=== PATIENT | female | born 1945 ===

== ENCOUNTER 2018-02-18 10:48 | Outpatient (CLI) | payer OTHER ==
[~2018-02-18] VITALS: Ht 172.7 cm; Wt 64.9 kg
== END 2018-02-18 11:10 | disposition home or self-care (01) ==
LOC: OFIC 805 10:48
DX: K14.0 Glossitis (principal)

== ENCOUNTER 2018-03-12 10:08 | Outpatient (CLI) | payer OTHER ==
[~2018-03-12] VITALS: Ht 152.4 cm; Wt 64.9 kg
== END 2018-03-12 10:15 | disposition home or self-care (01) ==
LOC: OFIC 805 10:08
DX: K14.0 Glossitis (principal); J31.0 Chronic rhinitis; R49.0 Dysphonia; K14.8 Other diseases of tongue

== ENCOUNTER 2018-03-22 13:03 | Outpatient (CLI) | payer OTHER ==
[~2018-03-22] VITALS: Ht 152.4 cm; Wt 64.9 kg
== END 2018-03-22 13:20 | disposition home or self-care (01) ==
LOC: OFIC 805 13:03
DX: K14.0 Glossitis (principal); K14.1 Geographic tongue

== ENCOUNTER 2018-04-18 11:16 | Outpatient (CLI) | payer OTHER ==
[~2018-04-18] VITALS: Ht 152.4 cm; Wt 64.9 kg
== END 2018-04-18 11:35 | disposition home or self-care (01) ==
LOC: OFIC 805 11:16
DX: K14.0 Glossitis (principal); R49.0 Dysphonia; K14.1 Geographic tongue; K21.9 Gastro-esophageal reflux disease without esophagitis